=== PATIENT | male | born 1950 | race Caucasian/White ===

== ENCOUNTER 2016-07-09 11:10 | Emergency (ER) | payer MEDICARE, OTHER ==
[2016-07-09 11:37] LABS: Glucose,Whole Blood 136 mg/dL (75-99)
--- NOTE | 2016-07-09 11:46 | ED ---
General Adult HPI - General Chief complaint: Altered Mental Status Stated complaint: Altered Mental Status Time Seen by Provider: 07/09/16 11:25 Source: patient, family, EMS, RN notes reviewed Mode of arrival: EMS Limitations: altered mental status, physical limitation - History of Present Illness Initial comments: Patient is a 66-year-old male presenting to the emergency Department with family for change in mental status. Patient arrives by EMS. Patient had requested 140 however EMS was not comfortable with this secondary to unable to get vital signs in route and change in mental status. Patient is altered and offers very little history. Family states patient did recently have a TIPS procedure done at [facility] and was told confusion was a potential complication. Patient does have a history of hepatitis C and liver cancer followed by treatment and resolution of cancer however patient still has cirrhosis. Patient does have paracentesis done weekly at [facility]. Family is not concerned regarding change in color. Family states change in mental status started this morning. Patient was acting normal yesterday. Patient has had limited speech today. Patient is ambulatory however has been very drowsy. - Related Data Allergies Allergy/AdvReac Type Severity Reaction Status Date / Time No Known Allergies Allergy Verified 07/09/16 13:33 Review of Systems ROS Statement: Those systems with pertinent positive or pertinent negative responses have been documented in the HPI. ROS Other: All systems not noted in ROS Statement are negative. Limitations: ROS unobtainable due to patients medical condition Past Medical History Past Medical History: Liver Disease Additional Past Medical History / Comment(s): liver cancer History of Any Multi-Drug Resistant Organisms: Unobtainable Additional Past Surgical History / Comment(s): tip shunt placed 07/07/16 Past Psychological History: Unable to Obtain Smoking Status: Unknown if ever smoked Past Alcohol Use History: Unable to Obtain Past Drug Use History: Unable to Obtain General Exam Limitations: no limitations General appearance: in no apparent distress, other (Drowsy but easily arousable. Patient has difficulty following commands and does resist this.) Head exam: Present: atraumatic Eye exam: Present: normal appearance, PERRL ENT exam: Present: normal oropharynx Neck exam: Present: normal inspection Respiratory exam: Present: normal lung sounds bilaterally Cardiovascular Exam: Present: regular rate, normal rhythm GI/Abdominal exam: Present: soft, distended (Minimally). Absent: tenderness Extremities exam: Present: normal inspection Neurological exam: Present: alert, altered, other (Limited exam secondary to patient noncompliance). Absent: motor sensory deficit Expanded Patient oriented to: Present: person Psychiatric exam: Present: normal affect, normal mood Skin exam: Absent: rash Course Vital Signs 07/09/16 07/09/16 11:17 12:43 Temperature 97.3 F L Pulse Rate 62 76 Respiratory 18 14 Rate Blood Pressure 116/68 100/58 O2 Sat by Pulse 97 97 Oximetry Medical Decision Making - Medical Decision Making Patient reevaluated and unchanged. Patient did get somewhat confused and agitated during attempted chest x-ray. Family updated on results and plan. Case was discussed in detail with Dr. Espino at [facility] who accept transfer. - Lab Data Result diagrams: 07/09/16 11:30 07/09/16 11:30 Lab Results 07/09/16 07/09/16 07/09/16 Range/Units 11:23 11:30 11:30 WBC (3.8-10.6) k/uL RBC (4.30-5.90) m/uL Hgb (13.0-17.5) gm/dL Hct (39.0-53.0) % MCV (80.0-100.0) fL MCH (25.0-35.0) pg MCHC (31.0-37.0) g/dL RDW (11.5-15.5) % Plt Count (150-450) k/uL Neutrophils % % Lymphocytes % % Monocytes % % Eosinophils % % Basophils % % Neutrophils # (1.3-7.7) k/uL Lymphocytes # (1.0-4.8) k/uL Monocytes # (0-1.0) k/uL Eosinophils # (0-0.7) k/uL Basophils # (0-0.2) k/uL Manual Slide Review Large Platelets Hypochromasia Poikilocytosis PT (9.0-12.0) sec INR (<1.1) APTT (22.0-30.0) sec Sodium (137-145) mmol/L Potassium (3.5-5.1) mmol/L Chloride (98-107) mmol/L Carbon Dioxide (22-30) mmol/L Anion Gap mmol/L BUN (9-20) mg/dL Creatinine (0.66-1.25) mg/dL Est GFR (MDRD) Af Amer (>60 ml/min/1.73 sqM) Est GFR (MDRD) Non-Af (>60 ml/min/1.73 sqM) Glucose (74-99) mg/dL POC Glucose (mg/dL) 136 H (75-99) mg/dL POC Glu Receptionist Nurse Gonzalo Lenz Calcium (8.4-10.2) mg/dL Total Bilirubin (0.2-1.3) mg/dL AST (17-59) U/L ALT (21-72) U/L Alkaline Phosphatase (38-126) U/L Ammonia 54 H (<30) umol/L Total Creatine Kinase 45 L (55-170) U/L CK-MB (CK-2) 1.2 (0.0-2.4) ng/mL CK-MB (CK-2) Rel Index 2.7 Troponin I <0.012 (0.000-0.034) ng/mL Total Protein (6.3-8.2) g/dL Albumin (3.5-5.0) g/dL Urine Color Urine Appearance (Clear) Urine pH (5.0-8.0) Ur Specific [place] (1.001-1.035) Urine Protein (Negative) Urine Glucose (UA) (Negative) Urine Ketones (Negative) Urine Blood (Negative) Urine Nitrate (Negative) Urine Bilirubin (Negative) Urine Urobilinogen (<2.0) mg/dL Ur Leukocyte Esterase (Negative) 07/09/16 07/09/16 07/09/16 Range/Units 11:30 11:30 11:30 WBC 8.3 (3.8-10.6) k/uL RBC 4.04 L (4.30-5.90) m/uL Hgb 11.2 L (13.0-17.5) gm/dL Hct 33.9 L (39.0-53.0) % MCV 83.9 (80.0-100.0) fL MCH 27.6 (25.0-35.0) pg MCHC 33.0 (31.0-37.0) g/dL RDW 15.5 (11.5-15.5) % Plt Count 31 L* (150-450) k/uL Neutrophils % 87 % Lymphocytes % 6 % Monocytes % 4 % Eosinophils % 1 % Basophils % 0 % Neutrophils # 7.2 (1.3-7.7) k/uL Lymphocytes # 0.5 L (1.0-4.8) k/uL Monocytes # 0.3 (0-1.0) k/uL Eosinophils # 0.1 (0-0.7) k/uL Basophils # 0.0 (0-0.2) k/uL Manual Slide Review Performed Large Platelets Present Hypochromasia Slight Poikilocytosis Slight PT 12.9 H (9.0-12.0) sec INR 1.3 (<1.1) APTT 24.8 (22.0-30.0) sec Sodium 136 L (137-145) mmol/L Potassium 4.6 (3.5-5.1) mmol/L Chloride 105 (98-107) mmol/L Carbon Dioxide 26 (22-30) mmol/L Anion Gap 5 mmol/L BUN 16 (9-20) mg/dL Creatinine 0.99 (0.66-1.25) mg/dL Est GFR (MDRD) Af Amer >60 (>60 ml/min/1.73 sqM) Est GFR (MDRD) Non-Af >60 (>60 ml/min/1.73 sqM) Glucose 109 H (74-99) mg/dL POC Glucose (mg/dL) (75-99) mg/dL POC Glu Receptionist Nurse ID Calcium 8.0 L (8.4-10.2) mg/dL Total Bilirubin 1.2 (0.2-1.3) mg/dL AST 371 H (17-59) U/L ALT 423 H (21-72) U/L Alkaline Phosphatase 75 (38-126) U/L Ammonia (<30) umol/L Total Creatine Kinase (55-170) U/L CK-MB (CK-2) (0.0-2.4) ng/mL CK-MB (CK-2) Rel Index Troponin I (0.000-0.034) ng/mL Total Protein 4.8 L (6.3-8.2) g/dL Albumin 2.5 L (3.5-5.0) g/dL Urine Color Urine Appearance (Clear) Urine pH (5.0-8.0) Ur Specific [place] (1.001-1.035) Urine Protein (Negative) Urine Glucose (UA) (Negative) Urine Ketones (Negative) Urine Blood (Negative) Urine Nitrate (Negative) Urine Bilirubin (Negative) Urine Urobilinogen (<2.0) mg/dL Ur Leukocyte Esterase (Negative) 07/09/16 Range/Units 12:50 WBC (3.8-10.6) k/uL RBC (4.30-5.90) m/uL Hgb (13.0-17.5) gm/dL Hct (39.0-53.0) % MCV (80.0-100.0) fL MCH (25.0-35.0) pg MCHC (31.0-37.0) g/dL RDW (11.5-15.5) % Plt Count (150-450) k/uL Neutrophils % % Lymphocytes % % Monocytes % % Eosinophils % % Basophils % % Neutrophils # (1.3-7.7) k/uL Lymphocytes # (1.0-4.8) k/uL Monocytes # (0-1.0) k/uL Eosinophils # (0-0.7) k/uL Basophils # (0-0.2) k/uL Manual Slide Review Large Platelets Hypochromasia Poikilocytosis PT (9.0-12.0) sec INR (<1.1) APTT (22.0-30.0) sec Sodium (137-145) mmol/L Potassium (3.5-5.1) mmol/L Chloride (98-107) mmol/L Carbon Dioxide (22-30) mmol/L Anion Gap mmol/L BUN (9-20) mg/dL Creatinine (0.66-1.25) mg/dL Est GFR (MDRD) Af Amer (>60 ml/min/1.73 sqM) Est GFR (MDRD) Non-Af (>60 ml/min/1.73 sqM) Glucose (74-99) mg/dL POC Glucose (mg/dL) (75-99) mg/dL POC Glu Receptionist Nurse ID Calcium (8.4-10.2) mg/dL Total Bilirubin (0.2-1.3) mg/dL AST (17-59) U/L ALT (21-72) U/L Alkaline Phosphatase (38-126) U/L Ammonia (<30) umol/L Total Creatine Kinase (55-170) U/L CK-MB (CK-2) (0.0-2.4) ng/mL CK-MB (CK-2) Rel Index Troponin I (0.000-0.034) ng/mL Total Protein (6.3-8.2) g/dL Albumin (3.5-5.0) g/dL Urine Color Yellow Urine Appearance Clear (Clear) Urine pH 6.0 (5.0-8.0) Ur Specific [place] 1.010 (1.001-1.035) Urine Protein Negative (Negative) Urine Glucose (UA) Negative (Negative) Urine Ketones Negative (Negative) Urine Blood Negative (Negative) Urine Nitrate Negative (Negative) Urine Bilirubin Negative (Negative) Urine Urobilinogen <2.0 (<2.0) mg/dL Ur Leukocyte Esterase Negative (Negative) - Radiology Data Radiology results: image reviewed (Computed tomography scan of the brain shows no acute process. Chest x-ray shows no acute process.) Disposition Clinical Impression: Altered mental status, Hepatic encephalopathy Disposition: OTHER INSTITUTION NOT DEFINED Condition: Serious - Out of Hospital Transfer - Req. Specs Out of Hospital Transfer - Requested Specifics: Other Emergency Center
[2016-07-09 11:59] LABS: Basophils % (A) 0 %; CH 27.3; CHCM 32.6; Eosinophils # (A) 0.1 k/uL (0-0.7); Eosinophils % (A) 1 %; HCT 33.9 % (39.0-53.0); HDW 3.42; HGB 11.2 gm/dL (13.0-17.5); Hypochromasia Slight; Large Platelets Flag Marked; Luc # (Auto) 0.07; Luc % (Auto) 1; Lymphocytes # (A) 0.5 k/uL (1.0-4.8); Lymphocytes % (A) 6 %; MCH 27.6 pg (25.0-35.0); MCV 83.9 fL (80.0-100.0); Mean Platelet Volume 12.7; Monocytes # (A) 0.3 k/uL (0-1.0); Monocytes % (A) 4 %; Neutrophils # (A) 7.2 k/uL (1.3-7.7); Neutrophils % (A) 87 %; Poikilocytosis Slight; RBC 4.04 m/uL (4.30-5.90); RDW 15.5 % (11.5-15.5); WBC 8.3 k/uL (3.8-10.6); WBC (Perox) 8.27
[2016-07-09 12:07] LABS: INR 1.3 (<1.1); Partial Thromboplastin Time 24.8 sec (22.0-30.0); Prothrombin Time 12.9 sec (9.0-12.0)
[2016-07-09 12:12] LABS: ALT 423 U/L (21-72); AST 371 U/L (17-59); Alkaline Phosphatase 75 U/L (38-126); Anion Gap 5 mmol/L; Blood Urea Nitrogen 16 mg/dL (9-20); Carbon Dioxide 26 mmol/L (22-30); Chloride 105 mmol/L (98-107); Glucose 109 mg/dL (74-99); Non-African American GFR(MDRD) >60 (>60 ml/min/1.73 sqM); Potassium 4.6 mmol/L (3.5-5.1); Sodium 136 mmol/L (137-145); Total Bilirubin 1.2 mg/dL (0.2-1.3); Total Protein 4.8 g/dL (6.3-8.2)
[2016-07-09 12:16] LABS: Manual Review Performed
[2016-07-09 12:18] LABS: Large Platelets Present
[2016-07-09 12:19] LABS: Creatine Kinase 45 U/L (55-170)
[2016-07-09 12:32] LABS: Creatine Kinase MB 1.2 ng/mL (0.0-2.4); Troponin I <0.012 ng/mL (0.000-0.034)
--- NOTE | 2016-07-09 12:54 | CT ---
EXAMINATION TYPE: CT brain wo con DATE OF EXAM: 07/09/2016 12:35 PM COMPARISON: NONE INDICATION: altered mental changes DLP: 1029.9 mGycm, Automated exposure control for dose reduction was used. CONTRAST: None CT of the brain is performed utilizing 3 mm thick sections through the posterior fossa and 3 mm thick sections through the remaining calvarium. Study is performed within 24 hours of arrival to the hosp ital. No abnormal hyperdensity is present to suggest an acute intracranial hemorrhage. No mass lesion is evident. No acute infarcts are evident. Ventricles and sulci are appropriate for the patient age. Paranasal sinuses and mastoid air cells within the [id number] are clear. IMPRESSIONS: 1. No acute intracranial changes.
[2016-07-09 12:59] LABS: Appearance,Urine Clear (Clear); Bilirubin,Urine Negative (Negative); Glucose,Urine (UA) Negative (Negative); Ketones,Urine Negative (Negative); Leukocyte Esterase,Urine Negative (Negative); Nitrite,Urine Negative (Negative); Protein,Urine Negative (Negative); UA Billing (MACRO vs. MICRO) CHEM; Urobilinogen,Urine <2.0 mg/dL (<2.0)
--- NOTE | 2016-07-09 13:09 | XR ---
EXAMINATION TYPE: XR chest 2V DATE OF EXAM: 07/09/2016 1:03 PM COMPARISON: NONE INDICATION: Altered mental status TECHNIQUE: Single frontal view of the chest is obtained. FINDINGS: The heart size is normal. The pulmonary vasculature is normal. Very minimal increased lung markings baby in the lower lung douglas. Correlate for atelectasis. IMPRESSION: 1. Suggestion of subsegmental atelectasis bilateral lung bases. Follow-up exams can be performed.
[2016-07-09] MEDS ORDERED: LACTULOSE 20 GM/30 ML CUP PO ONE (13:42)
[2016-07-09 15:10] VITALS: BP 119/73; PULSE 68; RESP 18; TEMP 97.4
== END 2016-07-09 15:30 | disposition other institution (70) ==
LOC: EC 11:10
DX: K72.90 Hepatic failure, unspecified without coma (principal); B19.20 Unspecified viral hepatitis C without hepatic coma; K74.60 Unspecified cirrhosis of liver; Z85.05 Personal history of malignant neoplasm of liver
CPT/HCPCS: 36415; 70450; 71020; 80053; 81003; 82140; 82550; 82553; 84484; 85025; 85610; 85730; 93005; 99285

== ENCOUNTER → 2017-10-16 | Outpatient (CLI) | payer MEDICARE, OTHER ==
[2017-10-16 11:16] LABS: INR 1.1 (<1.2); Partial Thromboplastin Time 24.2 sec (22.0-30.0); Prothrombin Time 10.5 sec (9.0-12.0)
== END | disposition home or self-care (01) ==
LOC: LABWHC1 10:20
PROVIDERS: ATTEND Internal Medicine Gastroenterology
DX: C22.8 Malignant neoplasm of liver, primary, unspecified as to type (principal)
CPT/HCPCS: 36415; 85610; 85730

== ENCOUNTER → 2018-04-17 | Outpatient (CLI) | payer MEDICARE, OTHER ==
--- NOTE | 2018-04-17 08:43 | MR ---
EXAMINATION TYPE: MR knee LT wo con DATE OF EXAM: 04/17/2018 COMPARISON: None HISTORY: Knee pain TECHNIQUE: Multiplanar, multisequence images of the knee is performed without IV contrast. FINDINGS: MEDIAL MENISCUS: Anterior and posterior horns are intact without tear. LATERAL MENISCUS: Anterior and posterior horns are intact without tear. CRUCIATE LIGAMENTS: The anterior and posterior cruciate ligaments are intact and unremarkable. COLLATERAL LIGAMENTS: The medial collateral ligament and lateral collateral ligament complex are inta ct and unremarkable. EXTENSOR MECHANISM: Visualized quadriceps and patellar tendons are intact. EFFUSION: No significant suprapatellar joint effusion. POPLITEAL CYST: No popliteal/rivas cyst. TRICOMPARTMENT SPACES: Mild degenerative narrowing medial tibiofemoral joint space and patellofemoral joint space. CARTILAGE: Intact BONE MARROW SIGNAL: There is bone marrow edema involving the lateral tibial Plateau with nondisplaced subchondral fracture posterior tibial plateau. No fracture depression noted. Mild surrounding soft t issue edema. OTHER: No additional significant abnormality is appreciated. IMPRESSION: 1.There is bone marrow edema involving the lateral tibial Plateau with nondisplaced subchondral fract ure posterior tibial plateau. No fracture depression noted. Mild surrounding soft tissue edema.
== END | disposition home or self-care (01) ==
LOC: RADMRIMAIN 05:59
PROVIDERS: ATTEND Orthopaedic Surgery
DX: S82.145A Nondisplaced bicondylar fracture of left tibia, initial encounter for closed fracture (principal)

== ENCOUNTER → 2018-06-21 | Outpatient (CLI) | payer MEDICARE, OTHER ==
[2018-06-21 11:25] LABS: Potassium 5.8 mmol/L (3.5-5.1)
== END | disposition home or self-care (01) ==
LOC: LABPAT 09:24
PROVIDERS: ATTEND Orthopaedic Surgery
DX: Z01.818 Encounter for other preprocedural examination (principal); M23.92 Unspecified internal derangement of left knee; Z01.812 Encounter for preprocedural laboratory examination
CPT/HCPCS: 80051; 93005

== ENCOUNTER → 2018-06-21 | Outpatient (CLI) | payer MEDICARE, OTHER ==
--- NOTE | 2018-06-21 12:58 | MR ---
EXAMINATION TYPE: MR lumbar spine wo con DATE OF EXAM: 06/21/2018 11:33 AM COMPARISON: NONE HISTORY: Disc degeneration, lumbar region, fall Multiplanar, MultiSpin echo imaging of the lumbar spine was performed. Please note only sagittal T1 a nd T2-weighted data sets were obtained. 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 Examination is therefore limited. L1-L2: Normal disc appearance without desiccation. No herniation, protrusion or disc bulging. No ca nal stenosis is present. Foramina are patent bilaterally. L2-L3: Normal disc appearance without desiccation. No herniation, protrusion or disc bulging. No ca nal stenosis is present. Foramina are patent bilaterally. L3-L4: Normal disc appearance without desiccation. No herniation, protrusion or disc bulging. No ca nal stenosis is present. Foramina are patent bilaterally. L4-L5: Normal disc appearance without desiccation. No herniation, protrusion or disc bulging. No ca nal stenosis is present. Foramina are patent bilaterally. L5-S1: Mild to moderate disc desiccation. Mild posterior disc bulge. No evidence of herniation or pro trusion. No evidence for central stenosis. Mild facet joint arthropathy with bilateral foraminal enc roachment Lumbar segments are intact. No paraspinal masses are identified. Conus medullaris has a normal appe arance. IMPRESSION: 1. Degenerative disc disease and disc bulging is noted.
== END | disposition home or self-care (01) ==
LOC: RADMRIMAIN 10:18
PROVIDERS: ATTEND Family Medicine
DX: M51.36 Other intervertebral disc degeneration, lumbar region (principal); M51.27 Other intervertebral disc displacement, lumbosacral region; I10 Essential (primary) hypertension
CPT/HCPCS: 72148; 82565

== ENCOUNTER → 2019-06-27 | Outpatient (CLI) | payer MEDICARE, OTHER ==
--- NOTE | 2019-06-29 17:09 | US ---
EXAMINATION TYPE: US kidneys/renal and bladder DATE OF EXAM: 06/27/2019 COMPARISON: NONE CLINICAL HISTORY: 69-year-old male N28.9 disorder kidney and bladder. EXAM MEASUREMENTS: Right Kidney: 8.0 x 4.7 x 4.4 cm Left Kidney: 10.4 x 5.3 x 4.1 cm Right Kidney: Measuring small. No hydronephrosis Left Kidney: No hydronephrosis. Bladder: 1.1 cm bladder wall nodularity right lateral aspect could represent a bladder wall fold rela ting to an adjacent bladder wall diverticulum. Bilateral Jets seen: Yes Spleen incidentally seen borderline enlarged at 13.6 cm. IMPRESSION: 1. No hydronephrosis. Suspect some underlying chronic kidney disease on the right given relatively sm aller size. 2. A 1.1 cm area of bladder wall nodularity along the right lateral aspect could represent a bladder wall fold relating to an adjacent diverticulum. A urothelial lesion is difficult to exclude at this t kb. Correlate with urine cytology, urinalysis, and either short interval follow-up or direct visuali zation as indicated.
== END | disposition home or self-care (01) ==
LOC: RADUSMAIN 13:34
PROVIDERS: ATTEND Family Medicine
DX: N32.89 Other specified disorders of bladder (principal)
CPT/HCPCS: 76770

== ENCOUNTER → 2019-07-03 | Outpatient (CLI) | payer MEDICARE, OTHER ==
[2019-07-03 08:15] LABS: Appearance,Urine Clear (Clear); Bilirubin,Urine Negative (Negative); Blood,Urine Trace (Negative); Color,Urine Yellow; Glucose,Urine (UA) Negative (Negative); Ketones,Urine Negative (Negative); Leukocyte Esterase,Urine Trace (Negative); Mucus,Urine Rare /hpf; Nitrite,Urine Negative (Negative); PH, Urine 5.5 (5.0-8.0); Protein,Urine 1+ (Negative); RBC,Urine 1 /hpf (0-5); Specific Gravity,Urine 1.018 (1.001-1.035); Squamous Epithelial Cell,Urine 1 /hpf (0-4); Urobilinogen,Urine <2.0 mg/dL (<2.0); WBC,Urine 1 /hpf (0-5)
[2019-07-03 16:23] LABS: African American GFR (CKD) 50.9 (60.0-200.0); Albumin 4.4 g/dL (3.80-4.90); Albumin/Globulin Ratio 2.75 (1.60-3.17); Anion Gap 3.4 mmol/L (4.00-12.00); BUN/Creat Ratio 13.75 Ratio (12.00-20.00); Calcium 8.8 mg/dL (8.7-10.3); Carbon Dioxide 23.6 mmol/L (21.6-31.8); Globulin 1.6 g/dL (1.6-3.3); Non-African American GFR(CKD) 43.9 (60.0-200.0); Phosphorus 2.4 mg/dL (2.4-5.1); Total Bilirubin 0.4 mg/dL (0.3-1.2)
== END | disposition home or self-care (01) ==
LOC: LABWHC1 07:32
PROVIDERS: ATTEND Internal Medicine Nephrology
DX: N18.9 Chronic kidney disease, unspecified (principal)
CPT/HCPCS: 36415; 80053; 81001; 84100

== ENCOUNTER → 2019-08-05 | Outpatient (CLI) | payer MEDICARE, OTHER | END | disposition home or self-care (01) | CPT/HCPCS: 36415; 80048; 80076; 80169; 81001; 82040; 82306; 82465; 82570; 82728; 83540; 83550; 83735; 83970; 84100; 84156; 84550; 85025 ==

== ENCOUNTER → 2020-02-06 | Outpatient (CLI) | payer MEDICARE, OTHER ==
[2020-02-06 12:59] LABS: INR 0.9 (<1.2); Partial Thromboplastin Time 22.2 sec (22.0-30.0); Prothrombin Time 9.8 sec (9.0-12.0)
[2020-02-06 21:07] LABS: Hepatitis A Antibody IgM Non-Reactive (Non-Reactive); Hepatitis B Surface Antigen Non-Reactive (Non-Reactive)
[2020-02-06 21:20] LABS: EBV-EBNA(IgG) >8.0 AI; EBV-VCA (IgG) >8.0 AI; EBV-VCA (IgM) 1.6 AI
== END | disposition home or self-care (01) ==
LOC: LABWHC1 11:39
PROVIDERS: ATTEND Internal Medicine Gastroenterology
DX: K74.60 Unspecified cirrhosis of liver (principal); B18.2 Chronic viral hepatitis C; Z94.4 Liver transplant status; R74.8 Abnormal levels of other serum enzymes; R76.8 Other specified abnormal immunological findings in serum; Z91.89 Other specified personal risk factors, not elsewhere classified; C22.0 Liver cell carcinoma
CPT/HCPCS: 86709; 86665 ×2; 87522; 86663; 85610; 85730; 87340; 87497; 86664; 36415; U0003

== ENCOUNTER → 2020-02-13 | Outpatient (CLI) | payer MEDICARE, OTHER | END | disposition home or self-care (01) | LOC: LABWHC1 13:25 | PROVIDERS: ATTEND Radiology Diagnostic Radiology | DX: Z20.828 Contact with and (suspected) exposure to other viral communicable diseases (principal) ==

== ENCOUNTER → 2020-03-30 | Outpatient (CLI) | payer MEDICARE | END | disposition home or self-care (01) | LOC: LABWHC1 10:51 | PROVIDERS: ATTEND Family Medicine | DX: Z03.89 Encounter for observation for other suspected diseases and conditions ruled out (principal) | CPT/HCPCS: U0003; C9803 ==

== ENCOUNTER → 2020-09-02 | Outpatient (CLI) | payer MEDICARE ==
[2020-09-02 11:41] LABS: Bilirubin,Unconjugated 0.6 mg/dL (0.0-1.1)
[2020-09-02 12:30] LABS: ALT 109 U/L (4-49); AST 45 U/L (17-59); African American GFR (CKD) 40 (>60 ml/min/1.73 sqM); Albumin 3.7 g/dL (3.5-5.0); Albumin/Globulin Ratio 1.5; Alkaline Phosphatase 358 U/L (38-126); Anion Gap 8 mmol/L; Blood Urea Nitrogen 32 mg/dL (9-20); Carbon Dioxide 24 mmol/L (22-30); Chloride 103 mmol/L (98-107); Cholesterol 197 mg/dL (<200); Globulin 2.5 g/dL; Glucose 115 mg/dL (74-99); HDL Cholesterol 47 mg/dL (40-60); LDL Cholesterol,Calculated 106 mg/dL (0-99); Non-African American GFR(CKD) 35 (>60 ml/min/1.73 sqM); Potassium 3.8 mmol/L (3.5-5.1); Sodium 135 mmol/L (137-145); T4, Free (Free Thyroxine) 1.27 ng/dL (0.78-2.19); Total Bilirubin 0.8 mg/dL (0.2-1.3); Total Protein 6.2 g/dL (6.3-8.2); Triglycerides 220 mg/dL (<150)
[2020-09-02 20:02] LABS: Basophils # (A) 0.03 X 10*3/uL (0.00-0.10); Basophils % (A) 0.5 %; Eosinophils # (A) 0.09 X 10*3/uL (0.04-0.35); Eosinophils % (A) 1.6 %; HCT 33.4 % (39.6-50.0); HGB 10.4 g/dL (13.0-17.0); Lymphocytes # (A) 1.43 X 10*3/uL (0.90-5.00); Lymphocytes % (A) 25.1 %; MCH 29.4 pg (27.0-32.0); MCHC 31.1 g/dL (32.0-37.0); MCV 94.4 fL (80.0-97.0); Mean Platelet Volume 11.3 fL (9.5-12.2); Monocytes # (A) 0.38 X 10*3/uL (0.20-1.00); Monocytes % (A) 6.7 %; Neutrophils # (A) 3.73 X 10*3/uL (1.80-7.70); Neutrophils % (A) 65.6 %; Platelet Count 139 X 10*3/uL (140-440); RBC 3.54 X 10*6/uL (4.40-5.60); RDW 15.4 % (11.5-14.5); WBC 5.69 X 10*3/uL (4.50-10.00)
[2020-09-03 00:36] LABS: % Iron Saturation 27.94 (15.00-50.00); Iron 69 ug/dL (65-175); Total Iron Binding Capacity 247 ug/dL (228-460)
[2020-09-03 00:45] LABS: Prostate Specific Antigen 0.9 ng/mL (0.0-4.5)
== END | disposition home or self-care (01) ==
LOC: LABWHC1 09:31
PROVIDERS: ATTEND Physician Assistant Medical
DX: E03.9 Hypothyroidism, unspecified (principal); I10 Essential (primary) hypertension; E78.2 Mixed hyperlipidemia; N40.0 Benign prostatic hyperplasia without lower urinary tract symptoms; D64.9 Anemia, unspecified
CPT/HCPCS: 36415; 80053; 80061; 82248; 82728; 83540; 83550; 84153; 84439; 84443; 85025

== ENCOUNTER 2020-09-15 07:35 | Emergency (ER) | payer MEDICARE ==
[2020-09-15 07:45] VITALS: TEMP 97.4
[2020-09-15] MEDS ORDERED: HYDROmorphone 1 MG/ML 1 ML SYRINGE IVP STA (07:46)
[2020-09-15] MEDS ORDERED: ONDANSETRON 4 MG/2 ML VIAL IVP STA (07:46)
[2020-09-15] MEDS ORDERED: SODIUM CHLORIDE 0.9% 500 ML 500 ML IV STA (07:47)
[2020-09-15] MEDS ORDERED: SODIUM CHLORIDE 0.9% 1,000 ML IV STA ×3 (07:47→09:48)
--- NOTE | 2020-09-15 07:51 | ED ---
General Adult HPI - General Chief complaint: Recheck/Abnormal Lab/Rx Stated complaint: abd pain Time Seen by Provider: 09/15/20 07:35 Source: patient, EMS, RN notes reviewed Mode of arrival: EMS Limitations: no limitations - History of Present Illness Initial comments: This is a 70-year-old male history of liver transplant about 2 years ago at [facility] also a history of chronic kidney disease who states he had the onset 2 days ago of increasing abdominal distention he started having pain this morning. Pain was very severe nonspecific and quality. He was given morphine and route by paramedics with minimal relief. He's had dry heaves no vomiting decreased oral intake for past 2 days also not sleeping over the last 2 days. He's had chills sweats no fever. No other current complaints or modifying factors - Related Data Home Medications Medication Instructions Recorded Confirmed Aspirin 325 mg PO DAILY 06/26/18 06/26/18 Atorvastatin [Lipitor] 20 mg PO DAILY 06/26/18 06/26/18 Ferrous Sulfate [Iron] 325 mg PO DAILY 06/26/18 06/26/18 Labetalol [Trandate] 200 mg PO BID 06/26/18 06/26/18 Levothyroxine Sodium 25 mcg PO QAM 06/26/18 06/26/18 Magnesium Oxide 400 mg PO BID 06/26/18 06/26/18 Morphine Sulfate 15 mg PO 1600 06/26/18 06/26/18 Morphine Sulfate [Ms Contin] 30 mg PO BID 06/26/18 06/26/18 Stool Softener 1 tab PO DAILY 06/26/18 06/26/18 Tacrolimus [Prograf] 2 mg PO BID 06/26/18 06/26/18 Tamsulosin [Flomax] 0.4 mg PO DAILY 06/26/18 06/26/18 Tenofovir Disoproxil Fumarate 300 mg PO QAM 06/26/18 06/26/18 Zortress 2.25 mg PO BID 06/26/18 06/26/18 mycophenolate mofetiL [Cellcept] 250 mg PO BID 06/26/18 06/26/18 oxyCODONE HCL [OxyIR] 5 mg PO Q12H 06/26/18 06/26/18 Allergies Allergy/AdvReac Type Severity Reaction Status Date / Time adhesive tape AdvReac Unknown Verified 06/26/18 09:07 Review of Systems ROS Statement: Those systems with pertinent positive or pertinent negative responses have been documented in the HPI. ROS Other: All systems not noted in ROS Statement are negative. Past Medical History Past Medical History: Liver Disease Additional Past Medical History / Comment(s): liver cancer History of Any Multi-Drug Resistant Organisms: C-DIFF Additional Past Surgical History / Comment(s): tip shunt placed 07/07/16 Past Psychological History: No Psychological Hx Reported Smoking Status: Former smoker Past Alcohol Use History: Unable to Obtain Past Drug Use History: Marijuana General Exam - General Exam Comments Initial Comments: This is a well-developed asthenic awake alert oriented 3 male Limitations: no limitations General appearance: alert (The patient does appear uncomfortable), anxious, in distress Head exam: Present: atraumatic, normocephalic, normal inspection Eye exam: Present: normal appearance, PERRL, EOMI. Absent: scleral icterus, conjunctival injection, periorbital swelling ENT exam: Present: mucous membranes dry Neck exam: Present: normal inspection. Absent: tenderness, meningismus, lymphadenopathy Respiratory exam: Present: normal lung sounds bilaterally. Absent: respiratory distress, wheezes, rales, rhonchi, stridor Cardiovascular Exam: Present: normal rhythm, tachycardia, normal heart sounds. Absent: systolic murmur, diastolic murmur, rubs, gallop, clicks GI/Abdominal exam: Present: soft, distended, tenderness, normal bowel sounds, other (Well-healed rooftop surgical scar). Absent: guarding, rebound, rigid Extremities exam: Present: normal inspection, full ROM, normal capillary refill. Absent: tenderness, pedal edema, joint swelling, calf tenderness Back exam: Present: normal inspection Neurological exam: Present: alert, oriented X3, CN II-XII intact Psychiatric exam: Present: normal affect, normal mood Skin exam: Present: warm, dry, intact, normal color. Absent: rash Course Vital Signs 09/15/20 09/15/20 09/15/20 07:38 08:45 09:46 Temperature 97.4 F L Pulse Rate 124 H 123 H 123 H Respiratory 20 18 18 Rate Blood Pressure 182/116 161/114 166/99 O2 Sat by Pulse 96 98 98 Oximetry - Reevaluation(s) Reevaluation #1: 09/15/20 10:54 Patient did require several more doses of pain medication he is on a rather large dose of morphine daily for chronic pain. Initial imaging showed evidence of free air CAT scan was recommended at did discuss the case with the radiologist. EKG Findings - EKG Results: EKG: interpreted by GABRIELLE (Tachycardia with PACs rate 122 CT interval 140 QRS 86 QT since QTC 324/[address] configuration) Medical Decision Making - Medical Decision Making I did discuss findings with the patient family patient will be transferred to [facility] and did consult Dr. Rodriguez who did recommend transferred to the transplant center for higher level of care. I did discuss the case with Dr. Akhtar from [facility] who is agreed to accept the patient in transfer ER to ER.. Patient be sent by EMS. He did receive IV Avelox as well as the IV pain medication and fluids. - Lab Data Result diagrams: 09/15/20 08:21 09/15/20 08:21 Lab Results 09/15/20 09/15/20 09/15/20 Range/Units 08:21 08:21 08:21 WBC 15.8 H (3.8-10.6) k/uL RBC 5.41 (4.30-5.90) m/uL Hgb 15.3 (13.0-17.5) gm/dL Hct 47.1 (39.0-53.0) % MCV 87.0 (80.0-100.0) fL MCH 28.3 (25.0-35.0) pg MCHC 32.5 (31.0-37.0) g/dL RDW 16.7 H (11.5-15.5) % Plt Count 257 (150-450) k/uL MPV 8.7 Neutrophils % (Manual) 68 % Band Neuts % (Manual) 8 % Lymphocytes % (Manual) 17 % Monocytes % (Manual) 7 % Neutrophils # (Manual) 12.00 H (1.3-7.7) k/uL Lymphocytes # (Manual) 2.69 (1.0-4.8) k/uL Monocytes # (Manual) 1.11 H (0-1.0) k/uL Nucleated RBCs 0 (0-0) /100 WBC Manual Slide Review Performed Poikilocytosis Moderate Anisocytosis Slight PT 11.1 (9.0-12.0) sec INR 1.0 (<1.2) APTT 18.3 L (22.0-30.0) sec Sodium 132 L (137-145) mmol/L Potassium 3.6 (3.5-5.1) mmol/L Chloride 102 (98-107) mmol/L Carbon Dioxide 19 L (22-30) mmol/L Anion Gap 11 mmol/L BUN 21 H (9-20) mg/dL Creatinine 2.04 H (0.66-1.25) mg/dL Est GFR (CKD-EPI)AfAm 38 (>60 ml/min/1.73 sqM) Est GFR (CKD-EPI)NonAf 33 (>60 ml/min/1.73 sqM) Glucose 255 H (74-99) mg/dL Plasma Lactic Acid Mahin (0.7-2.0) mmol/L Calcium 9.2 (8.4-10.2) mg/dL Total Bilirubin 1.0 (0.2-1.3) mg/dL AST 28 (17-59) U/L ALT 24 (4-49) U/L Alkaline Phosphatase 170 H (38-126) U/L Creatine Kinase 70 (55-170) U/L Total Protein 6.2 L (6.3-8.2) g/dL Albumin 3.9 (3.5-5.0) g/dL Amylase 102 (30-110) U/L Lipase 74 (23-300) U/L 09/15/ Range/Units 08:21 WBC (3.8-10.6) k/uL RBC (4.30-5.90) m/uL Hgb (13.0-17.5) gm/dL Hct (39.0-53.0) % MCV (80.0-100.0) fL MCH (25.0-35.0) pg MCHC (31.0-37.0) g/dL RDW (11.5-15.5) % Plt Count (150-450) k/uL MPV Neutrophils % (Manual) % Band Neuts % (Manual) % Lymphocytes % (Manual) % Monocytes % (Manual) % Neutrophils # (Manual) (1.3-7.7) k/uL Lymphocytes # (Manual) (1.0-4.8) k/uL Monocytes # (Manual) (0-1.0) k/uL Nucleated RBCs (0-0) /100 WBC Manual Slide Review Poikilocytosis Anisocytosis PT (9.0-12.0) sec INR (<1.2) APTT (22.0-30.0) sec Sodium (137-145) mmol/L Potassium (3.5-5.1) mmol/L Chloride (98-107) mmol/L Carbon Dioxide (22-30) mmol/L Anion Gap mmol/L BUN (9-20) mg/dL Creatinine (0.66-1.25) mg/dL Est GFR (CKD-EPI)AfAm (>60 ml/min/1.73 sqM) Est GFR (CKD-EPI)NonAf (>60 ml/min/1.73 sqM) Glucose (74-99) mg/dL Plasma Lactic Acid Mahin 2.2 H* (0.7-2.0) mmol/L Calcium (8.4-10.2) mg/dL Total Bilirubin (0.2-1.3) mg/dL AST (17-59) U/L ALT (4-49) U/L Alkaline Phosphatase (38-126) U/L Creatine Kinase (55-170) U/L Total Protein (6.3-8.2) g/dL Albumin (3.5-5.0) g/dL Amylase (30-110) U/L Lipase (23-300) U/L - Radiology Data Radiology results: report reviewed (Imaging reviewed and I did discuss the case with Dr. Mendieta and Dr. Russo patient does have evidence of a perforation possibly the inferior aspect of the stomach.), image reviewed Critical Care Time Critical Care Time: Yes Total Critical Care Time: 39 Critical Care Time: Critical care time includes initial presentation with history physical labs x-rays multiple reevaluation the patient discussion with multiple physicians regarding the patient's findings discussed with paramedics upon arrival and upon transfer. Review of old charting documentation the above. Disposition Clinical Impression: Perforated abdominal viscus, Abdominal pain, Lactic acidosis, Dehydration, History of liver transplant Disposition: OTHER INSTITUTION NOT DEFINED Condition: Fair Referrals: Brianna Guadalupe MD [Primary Care Provider] - 1-2 days - Out of Hospital Transfer - Req. Specs Out of Hospital Transfer - Requested Specifics: Other Emergency Center
[2020-09-15 08:32] LABS: Anisocytosis Slight; HCT 47.1 % (39.0-53.0); HGB 15.3 gm/dL (13.0-17.5); MCH 28.3 pg (25.0-35.0); MCHC 32.5 g/dL (31.0-37.0); Mean Platelet Volume 8.7; Platelet Count 257 k/uL (150-450); Poikilocytosis Moderate; RBC 5.41 m/uL (4.30-5.90); RDW 16.7 % (11.5-15.5); WBC 15.8 k/uL (3.8-10.6)
[2020-09-15 08:45] LABS: Albumin 3.9 g/dL (3.5-5.0); Calcium 9.2 mg/dL (8.4-10.2); Potassium 3.6 mmol/L (3.5-5.1); Total Protein 6.2 g/dL (6.3-8.2)
[2020-09-15 08:51] LABS: Prothrombin Time 11.1 sec (9.0-12.0)
[2020-09-15] MEDS ORDERED: fentaNYL (PF) 50 MCG/ML 2 ML AMP IV STA (08:51)
--- NOTE | 2020-09-15 08:55 | XR ---
EXAMINATION TYPE: XR KUB DATE OF EXAM: 09/15/2020 8:37 AM CLINICAL HISTORY: History of liver cancer with abdominal pain nausea and vomiting. TECHNIQUE: Two Upright KUB images of the abdomen are obtained. COMPARISON: None. FINDINGS: Prominent gas-filled small and large bowel loops with air-fluid levels in the upper to mid abdomen. Some paucity of bowel gas in the pelvis. Some gas seen in nondistended bowel loops in the ri ght lower quadrant. Cholecystectomy clips. Small right pleural effusion or pleural thickening. Modera te narrowing and mild to moderate spurring in both hip joints. Suggestion of free air below left tatiana diaphragm. IMPRESSION: Overall nonspecific bowel gas pattern. Cannot exclude developing mid small bowel obstruct ion. Probable pneumoperitoneum. Critical results communicated to ordering ER physician via telephone at time of dictation. A Document Only message has been documented for Kevin Chris MD in the [employer] Critical Re sult system on 09/15/2020 8:52 AM, Message ID [id number].
[2020-09-15 09:22] VITALS: RESP 18
[2020-09-15 09:28] LABS: Band Neutrophils % 8 %; Lymphocytes # (M) 2.69 k/uL (1.0-4.8); Monocytes # (M) 1.11 k/uL (0-1.0); Neutrophils % (M) 68 %; Nucleated Red Blood Cells 0 /100 WBC (0-0); Partial Thromboplastin Time 18.3 sec (22.0-30.0); Total Cells Counted 100
[2020-09-15] MEDS ORDERED: PIPERACILLIN-TAZOBACTAM 3.375 GM in SODIUM CHLORIDE 0.9% 100 ML IVPB STA (09:48)
[2020-09-15] MEDS ORDERED: PANTOPRAZOLE 40 MG/10 ML VIAL IVP ONE (09:49)
--- NOTE | 2020-09-15 09:50 | CT ---
EXAMINATION TYPE: CT abdomen pelvis wo con DATE OF EXAM: 09/15/2020 COMPARISON: KUB 09/15/2020 HISTORY: Abdominal pain CT DLP: 702.5 mGycm Automated exposure control for dose reduction was used. TECHNIQUE: Helical acquisition of images from the lung bases through the pelvis. FINDINGS: Lack of intravenous contrast could compromise sensitivity. Free air is noted within the abd omen. There are coronary artery calcifications present, root of the aorta is aneurysmal at 4.4 cm, so me associated calcification suspected LUNG BASES: There is some minimal airspace disease present in the right lower lobe laterally, some pr obable dependent atelectatic change, small right pleural effusion. AORTA: No significant abnormality is appreciated. LIVER/GB: Patient is post cholecystectomy. Liver shows no mass. PANCREAS: No significant abnormality is seen. SPLEEN: No significant abnormality is seen. ADRENALS: No significant abnormality is seen. KIDNEYS: No significant abnormality is seen. REPRODUCTIVE ORGANS: There are some calcifications associated with the prostate. URINARY BLADDER: Some thickening the urinary bladder wall could be due to underlying cystitis, corre late for possible chronic bladder outlet obstruction BOWEL: Stomach shows some dependent high attenuation possibly due to radiodense medication. Distal a spect of the stomach shows a thickened wall Inflammatory changes present near the gastroduodenal junc tion, free air is noted anteriorly. Along the distal aspect of the stomach there is some free air, fr ee fluid as well as free hypodense dependent material possibly related to prior oral intake FREE AIR: No Free Air is visible. ASCITES: There is free fluid present within the pelvis, along the paracolic gutters greater on the r ight. PELVIC ADENOPATHY: None visualized. RETROPERITONEAL ADENOPATHY: No Retroperitoneal Adenopathy visible. OSSEOUS STRUCTURES: There is a slight spinal curvature. Degenerative disc changes are noted in the v isualized spine. There is some associated facet arthropathy in the lower lumbar spine. IMPRESSION: MODERATE AMOUNT OF FREE AIR NOTED WITHIN THE ABDOMEN, ASCITES. CORRELATE FOR POSSIBLE PEPTIC ULCER DI SEASE, POSSIBLE LEAK NOTED IN THE INFERIOR ASPECT OF THE STOMACH. Aortic aneurysm and coronary artery disease. Case discussed with Dr. Chris telephonically at the time of interpretation. A Document Only message has been documented for Kevin Chris MD in the [employer] Critical Re sult system on 09/15/2020 9:47 AM, Message ID [id number].
[2020-09-15] MEDS ORDERED: LORazepam 2 MG/ML INJ IV STA (10:07)
[2020-09-15 11:01] VITALS: BP 152/107; PULSE 119
== END 2020-09-15 11:32 | disposition other institution (70) ==
LOC: EC 07:35
DX: K63.1 Perforation of intestine (nontraumatic) (principal); E87.2 Acidosis; E86.0 Dehydration; N18.9 Chronic kidney disease, unspecified; F12.90 Cannabis use, unspecified, uncomplicated; Z87.891 Personal history of nicotine dependence; Z79.82 Long term (current) use of aspirin; Z94.4 Liver transplant status; Z20.822 Contact with and (suspected) exposure to COVID-19
CPT/HCPCS: 93005; 80053; 82150; 82550; 83605; 83690; 85025; 85610; 85730; 87040; 87635; 74018; 74176; 99291; 96374; 96375 ×5; J2543; J2060; J2405; J3010; J1170; C9113

== ENCOUNTER 2020-10-08 20:25 | Emergency (ER) | payer MEDICARE ==
[2020-10-08 20:45] VITALS: TEMP 98.3
[2020-10-08 21:40] LABS: Anisocytosis Slight; Basophils % (A) 1 %; Eosinophils # (A) 0.1 k/uL (0-0.7); Eosinophils % (A) 1 %; HCT 30.4 % (39.0-53.0); Hypochromasia Moderate; Lymphocytes # (A) 1.4 k/uL (1.0-4.8); Lymphocytes % (A) 23 %; MCH 27.1 pg (25.0-35.0); MCHC 31.5 g/dL (31.0-37.0); MCV 86.1 fL (80.0-100.0); Mean Platelet Volume 8.7; Monocytes # (A) 0.3 k/uL (0-1.0); Monocytes % (A) 5 %; Neutrophils # (A) 4.4 k/uL (1.3-7.7); Neutrophils % (A) 70 %; Platelet Count 288 k/uL (150-450); RBC 3.53 m/uL (4.30-5.90); RDW 17.4 % (11.5-15.5); WBC 6.2 k/uL (3.8-10.6)
[2020-10-08 21:49] LABS: HGB 9.6 gm/dL (13.0-17.5)
[2020-10-08 22:28] LABS: Albumin 2.6 g/dL (3.5-5.0); Calcium 8.3 mg/dL (8.4-10.2); Potassium 4.2 mmol/L (3.5-5.1); Total Bilirubin 0.7 mg/dL (0.2-1.3); Total Protein 5.3 g/dL (6.3-8.2)
--- NOTE | 2020-10-08 22:33 | ED ---
Recheck HPI - General Chief Complaint: Recheck/Abnormal Lab/Rx Stated Complaint: Swollen Stomach, Surgery 3 weeks ago Time Seen by Provider: 10/08/20 20:54 Source: family Mode of arrival: wheelchair Limitations: no limitations - History of Present Illness Initial Comments: 70-year-old liver transplant patient presented to the ER today for chief complaint of clear liquid from surgical site. Patient states today he has had clear liquid coming from a surgical site. He states he has been feeling great since the surgery. Patient states he was at [facility] for ruptured peptic ulcer. Patient states that he has felt fine since, denies lighthe adedness, bright red stools, nausea, vomiting, fevers, warmth or purulent drainage from the incision site. Patient states today he noted some clear liquid from site and abdominal blaoting and came to the ER. Remaining ROS (-). - Related Data Home Medications Medication Instructions Recorded Confirmed Aspirin 325 mg PO DAILY 06/26/18 10/08/20 Atorvastatin [Lipitor] 20 mg PO HS 06/26/18 10/08/20 Ferrous Sulfate [Iron] 325 mg PO BID 06/26/18 10/08/20 Labetalol [Trandate] 200 mg PO BID 06/26/18 10/08/20 Levothyroxine Sodium 25 mcg PO DAILY 06/26/18 10/08/20 Magnesium Oxide 400 mg PO BID 06/26/18 10/08/20 Morphine Sulfate 15 mg PO DAILY@1600 06/26/18 10/08/20 Morphine Sulfate [Ms Contin] 30 mg PO BID 06/26/18 10/08/20 Tenofovir Disoproxil Fumarate 300 mg PO DAILY 06/26/18 10/08/20 oxyCODONE HCL [OxyIR] 5 mg PO Q12H 06/26/18 10/08/20 Docusate [Colace] 100 mg PO DAILY 09/15/20 10/08/20 Magnesium Gluconate [Magonate] 500 mg PO DAILY 09/15/20 10/08/20 Tacrolimus [Envarsus Xr] 0.75 mg PO DAILY 09/15/20 10/08/20 bisacodyL [Dulcolax] 5 mg PO DAILY PRN 09/15/20 10/08/20 diphenhydrAMINE [Benadryl] 50 mg PO HS PRN 09/15/20 10/08/20 Tetracycline HCl 1,000 mg PO BID 10/08/20 10/08/20 metroNIDAZOLE [Flagyl] 500 mg PO BID 10/08/20 10/08/20 predniSONE 5 mg PO DAILY 10/08/20 10/08/20 Allergies Allergy/AdvReac Type Severity Reaction Status Date / Time adhesive tape AdvReac Unknown Verified 10/08/20 22:09 Review of Systems ROS Statement: Those systems with pertinent positive or pertinent negative responses have been documented in the HPI. ROS Other: All systems not noted in ROS Statement are negative. Past Medical History Past Medical History: Liver Disease Additional Past Medical History / Comment(s): liver cancer History of Any Multi-Drug Resistant Organisms: C-DIFF Additional Past Surgical History / Comment(s): tip shunt placed 07/07/16 Past Psychological History: No Psychological Hx Reported Smoking Status: Former smoker Past Alcohol Use History: Unable to Obtain Past Drug Use History: Marijuana General Exam - General Exam Comments Initial Comments: General: The patient is awake and alert, in no distress Eye: Pupils are equal, round and reactive to light, extra-ocular movements are intact. No nystagmus. There is normal conjunctiva bilaterally. No signs of icterus. Ears, nose, mouth and throat: There are moist mucous membranes and no oral lesions. Neck: The neck is supple, there is no tenderness or JVD. Cardiovascular: There is a regular rate and rhythm. No murmur, rub or gallop is appreciated. Respiratory: Lungs are clear to auscultation, respirations are non-labored, breath sounds are equal. No wheezes, stridor, rales, or rhonchi. Gastrointestinal: Distneded abdomen mild diffuse tenderness, abdomen without masses or organomegaly noted. There is no rebound or guarding present. midline incision, clear fluid, appears to be healing/granulating previous dehiscence Musculoskeletal: Normal ROM, no tenderness. Strength 5/5. Sensation intact. Pulses equal bilaterally 2+. Neurological: A&O x 3. CN II-XII intact grossly, There are no obvious motor or sensory deficits. Coordination appears grossly intact. Speech is normal. Skin: Skin is warm and dry and no rashes or lesions are noted. Psychiatric: Cooperative, appropriate mood & affect, normal judgment. Limitations: no limitations Course Vital Signs 10/08/20 10/08/20 10/08/20 20:43 21:23 22:08 Temperature 98.3 F Pulse Rate 85 80 Respiratory 16 18 Rate Blood Pressure 96/68 95/60 93/63 O2 Sat by Pulse 96 96 Oximetry Medical Decision Making - Medical Decision Making 70-year-old male presenting for drainage from wound. Around 10PM patient states the wound is no longer draining and he wanted to go home-this was even before CMP results. I recommended waiting for labs, patient states he does not care. I discussed his lab results including his anemic state of 9.6 which i told him was concerning for possible GI bleed. He states that he doesnt care, he does not want to stay at the hospital and has a follow-up appointment on Sunday at 10:30> I discussed the risk of disability and secondary to GI bleed. I recommended he stay for protonix, serial CBC and monitoring on telemetry. Patient became angry and adamently refused. States he is not staying under and condition. pt does not appear acutely altered and is his own POA. I recommended patient return as soon as he can. I discussed case with attending Dr Escobar as celina lemons is of sound mind, we cannot hold him against his will. pt left against my medical advice - Lab Data Result diagrams: 10/08/20 21:11 10/08/20 21:11 Lab Results 10/08/20 10/08/20 Range/Units 21:11 21:11 WBC 6.2 (3.8-10.6) k/uL RBC 3.53 L (4.30-5.90) m/uL Hgb 9.6 L D (13.0-17.5) gm/dL Hct 30.4 L (39.0-53.0) % MCV 86.1 (80.0-100.0) fL MCH 27.1 (25.0-35.0) pg MCHC 31.5 (31.0-37.0) g/dL RDW 17.4 H (11.5-15.5) % Plt Count 288 (150-450) k/uL MPV 8.7 Neutrophils % 70 % Lymphocytes % 23 % Monocytes % 5 % Eosinophils % 1 % Basophils % 1 % Neutrophils # 4.4 (1.3-7.7) k/uL Lymphocytes # 1.4 (1.0-4.8) k/uL Monocytes # 0.3 (0-1.0) k/uL Eosinophils # 0.1 (0-0.7) k/uL Basophils # 0.0 (0-0.2) k/uL Hypochromasia Moderate Anisocytosis Slight Sodium 131 L (137-145) mmol/L Potassium 4.2 (3.5-5.1) mmol/L Chloride 99 (98-107) mmol/L Carbon Dioxide 22 (22-30) mmol/L Anion Gap 10 mmol/L BUN 29 H (9-20) mg/dL Creatinine 2.14 H (0.66-1.25) mg/dL Est GFR (CKD-EPI)AfAm 36 (>60 ml/min/1.73 sqM) Est GFR (CKD-EPI)NonAf 31 (>60 ml/min/1.73 sqM) Glucose 119 H (74-99) mg/dL Calcium 8.3 L (8.4-10.2) mg/dL Total Bilirubin 0.7 (0.2-1.3) mg/dL AST 25 (17-59) U/L ALT 10 (4-49) U/L Alkaline Phosphatase 504 H (38-126) U/L Total Protein 5.3 L (6.3-8.2) g/dL Albumin 2.6 L (3.5-5.0) g/dL Amylase 41 (30-110) U/L Lipase 53 (23-300) U/L Disposition Clinical Impression: Drainage from surgical wound, Anemia Disposition: Left Against Medical Advice Condition: Undetermined Instructions (If sedation given, give patient instructions): Anemia (ED) Additional Instructions: Please come back to ER whenever you can, if you will not then please at the very least follow-up on Sunday as scheduled. Is patient prescribed a controlled substance at d/c from ED?: No Referrals: Brianna Guadalupe MD [Primary Care Provider] - 1-2 days Time of Disposition: 22:33
[2020-10-08 23:21] VITALS: BP 96/64; PULSE 75; RESP 20
== END 2020-10-08 23:25 | disposition left against medical advice (07) ==
LOC: EC 20:25
DX: T81.30XA Disruption of wound, unspecified, initial encounter (principal); D64.9 Anemia, unspecified; F12.90 Cannabis use, unspecified, uncomplicated; Z87.891 Personal history of nicotine dependence; Z79.82 Long term (current) use of aspirin
CPT/HCPCS: 80053; 82150; 83690; 85025; 99284

== ENCOUNTER → 2021-08-10 | Outpatient (CLI) | payer MEDICARE ==
[2021-08-10 08:13] LABS: Appearance,Urine Clear (Clear); Bilirubin,Urine Negative (Negative); Blood,Urine Negative (Negative); Color,Urine Yellow; Glucose,Urine (UA) Negative (Negative); Ketones,Urine Negative (Negative); Leukocyte Esterase,Urine Negative (Negative); Nitrite,Urine Negative (Negative); Protein,Urine Trace (Negative); Specific Gravity,Urine 1.017 (1.001-1.035); Urobilinogen,Urine <2.0 mg/dL (<2.0)
[2021-08-10 10:44] LABS: Creatinine,Urine Random 132.3 mg/dL; Protein/Creatinine Ratio,Urine 0.272
[2021-08-10 11:16] LABS: % Iron Saturation 21.39 (15.00-50.00); African American GFR (CKD) 40.8 (60.0-200.0); Anion Gap 9.5 mmol/L (10.00-18.00); BUN/Creat Ratio 8.89 Ratio (12.00-20.00); Blood Urea Nitrogen 16.9 mg/dL (9.0-27.0); Calcium 8.6 mg/dL (8.7-10.3); Carbon Dioxide 22.5 mmol/L (20.0-27.5); Magnesium 2.3 mg/dL (1.5-2.4); Non-African American GFR(CKD) 35.2 (60.0-200.0); Phosphorus 2.6 mg/dL (2.4-5.1); Potassium 4.6 mmol/L (3.5-5.5); Uric Acid 4.3 mg/dL (3.7-8.7)
[2021-08-10 12:50] LABS: Albumin 4.1 g/dL (3.8-4.9); Ferritin 81.4 ng/mL (22.0-322.0)
[2021-08-10 16:09] LABS: Basophils # (A) 0.03 X 10*3/uL (0.00-0.10); Basophils % (A) 0.7 %; Eosinophils # (A) 0.13 X 10*3/uL (0.04-0.35); HCT 35.7 % (39.6-50.0); HGB 11.3 g/dL (13.0-17.0); Immature Grans, Automated 0.2 %; Lymphocytes # (A) 1.57 X 10*3/uL (0.90-5.00); Lymphocytes % (A) 36.5 %; MCH 28.1 pg (27.0-32.0); MCHC 31.7 g/dL (32.0-37.0); MCV 88.8 fL (80.0-97.0); Mean Platelet Volume 10.9 fL (9.5-12.2); Monocytes # (A) 0.26 X 10*3/uL (0.20-1.00); NRBC Per 100 WBC 0 /100 WBCS (0.0-0.0); Neutrophils % (A) 53.6 %; Platelet Count 137 X 10*3/uL (140-440); RBC 4.02 X 10*6/uL (4.40-5.60); RDW 14.4 % (11.5-14.5)
== END | disposition home or self-care (01) ==
LOC: LABWHC1 06:57
PROVIDERS: ATTEND Internal Medicine Nephrology
DX: N18.30 Chronic kidney disease, stage 3 unspecified (principal); E55.9 Vitamin D deficiency, unspecified; N25.81 Secondary hyperparathyroidism of renal origin; M10.9 Gout, unspecified; N39.0 Urinary tract infection, site not specified; D64.9 Anemia, unspecified; R80.9 Proteinuria, unspecified
CPT/HCPCS: 36415; 80048; 81003; 82040; 82306; 82570; 82728; 83540; 83550; 83735; 83970; 84100; 84156; 84550; 85025; 87517

== ENCOUNTER → 2021-09-13 | Outpatient (CLI) | payer MEDICARE | END | disposition home or self-care (01) | LOC: LABWHC1 08:29 | PROVIDERS: ATTEND Internal Medicine Gastroenterology | DX: Z53.9 Procedure and treatment not carried out, unspecified reason (principal) ==

== ENCOUNTER → 2021-12-23 | Outpatient (CLI) | payer MEDICARE ==
--- NOTE | 2021-12-23 10:40 | MR ---
EXAMINATION TYPE: MR lumbar spine wo con DATE OF EXAM: 12/23/2021 COMPARISON: MRI lumbar spine 06/21/2018 HISTORY: RADICULOPATHY, LUMBAR REGION, FELL ON STEPS TECHNIQUE: Multiplanar, multisequence images of the lumbar spine were acquired without IV contrast. L1-L2: Normal disc appearance without desiccation. No herniation, protrusion or disc bulging. No ca nal stenosis is present. Foramina are patent bilaterally. L2-L3: Mild posterior broad-based disc bulge causes only slight anterior mass effect on the thecal sa c. No significant foraminal. L3-L4: Normal disc appearance without desiccation. No herniation, protrusion or disc bulging. No ca nal stenosis is present. Foramina are patent bilaterally. L4-L5: Normal disc appearance without desiccation. No herniation, protrusion or disc bulging. No ca nal stenosis is present. Foramina are patent bilaterally. Facet arthropathy changes present with hyp ertrophy ligamentum flavum causing some posterior lateral mass effect thecal sac. L5-S1: Bilateral foraminal encroachment is present, there are circumferential extension endplate disc complex causing mild anterior mass effect on the thecal sac similar to prior exam. There is some fac et arthropathy change. Posterior broad-based disc bulge causes only slight anterior mass effect Lumbar segments are intact. No paraspinal masses are identified. Conus medullaris has a normal appe arance. Suspected transitional vertebral body. No significant spinal stenosis. There is multilevel sp ondylosis. Endplate discogenic marrow signal changes are noted. IMPRESSION: Degenerative disease and facet arthropathy are similar to prior exam.
== END | disposition home or self-care (01) ==
LOC: RADMRIMAIN 09:07
PROVIDERS: ATTEND Family Medicine
DX: M47.896 Other spondylosis, lumbar region (principal); M54.16 Radiculopathy, lumbar region
CPT/HCPCS: 72148

== ENCOUNTER → 2022-10-06 | Outpatient (CLI) | payer MEDICARE ==
[2022-10-06 11:14] LABS: Basophils # (A) 0.04 X 10*3/uL (0.00-0.10); Basophils % (A) 0.8 %; Eosinophils # (A) 0.12 X 10*3/uL (0.04-0.35); Eosinophils % (A) 2.3 %; HCT 41.9 % (39.6-50.0); HGB 12.6 g/dL (13.0-17.0); Immature Grans, Automated 0.2 %; Lymphocytes # (A) 1.69 X 10*3/uL (0.90-5.00); Lymphocytes % (A) 32.3 %; MCH 27.1 pg (27.0-32.0); MCHC 30.1 g/dL (32.0-37.0); MCV 90.1 fL (80.0-97.0); Mean Platelet Volume 10.9 fL (9.5-12.2); Monocytes # (A) 0.27 X 10*3/uL (0.20-1.00); Monocytes % (A) 5.2 %; NRBC Per 100 WBC 0 /100 WBCS (0.0-0.0); Neutrophils # (A) 3.11 X 10*3/uL (1.80-7.70); Neutrophils % (A) 59.2 %; Platelet Count 128 X 10*3/uL (140-440); RBC 4.65 X 10*6/uL (4.40-5.60); RDW 14.4 % (11.5-14.5); WBC 5.24 X 10*3/uL (4.50-10.00)
[2022-10-06 11:19] LABS: Chol/HDL Ratio 3.23 Ratio; LDL Cholesterol,Calculated 66.9 mg/dL (0.0-131.0)
[2022-10-06 11:21] LABS: Hepatitis B Surface Antigen Nonreactive (Nonreactive)
[2022-10-06 11:27] LABS: Hepatitis B Surface Antibody Reactive (Nonreactive)
[2022-10-06 11:41] LABS: % Iron Saturation 18.89 (15.00-50.00); ALT 20 U/L (10-49); AST 22 U/L (14-35); African American GFR (CKD) 46.3 (60.0-200.0); Albumin 4.5 g/dL (3.8-4.9); Albumin/Globulin Ratio 2.37 (1.60-3.17); Alkaline Phosphatase 173 U/L (41-126); BUN/Creat Ratio 9.35 Ratio (12.00-20.00); Bilirubin, Conjugated <0.20 mg/dL (0.20-0.40); Blood Urea Nitrogen 15.9 mg/dL (9.0-27.0); Calcium 9.2 mg/dL (8.7-10.3); Carbon Dioxide 25.1 mmol/L (20.0-27.5); Chloride 104 mmol/L (96-109); Globulin 1.9 g/dL (1.6-3.3); Glucose 122 mg/dL (70-110); Iron 55 ug/dL (65-175); Magnesium 2.2 mg/dL (1.5-2.4); Sodium 140 mmol/L (135-145); Total Iron Binding Capacity 291 ug/dL (228-460); Total Protein 6.4 g/dL (6.2-8.2)
== END | disposition home or self-care (01) ==
LOC: LABWHC1 07:24
PROVIDERS: ATTEND Family Medicine
DX: D64.9 Anemia, unspecified (principal); Z94.4 Liver transplant status; Z98.890 Other specified postprocedural states; D84.9 Immunodeficiency, unspecified; C22.0 Liver cell carcinoma; N28.9 Disorder of kidney and ureter, unspecified; R74.8 Abnormal levels of other serum enzymes
CPT/HCPCS: 36415; 80053; 80061; 82105; 82248; 82728; 83540; 83550; 83735; 84439; 84443; 85025; 86706; 87340; 87517

== ENCOUNTER → 2022-10-13 | Outpatient (CLI) | payer MEDICARE | END | disposition home or self-care (01) | LOC: LABWHC1 07:22 | PROVIDERS: ATTEND Internal Medicine Transplant Hepatology | DX: E55.9 Vitamin D deficiency, unspecified (principal); Z94.4 Liver transplant status | CPT/HCPCS: 36415; 82306 ==

== ENCOUNTER → 2022-10-24 | Outpatient (CLI) | payer MEDICARE ==
[2022-10-24 15:17] LABS: Basophils # (A) 0.03 X 10*3/uL (0.00-0.10); Basophils % (A) 0.7 %; Eosinophils # (A) 0.11 X 10*3/uL (0.04-0.35); Eosinophils % (A) 2.5 %; HCT 38.7 % (39.6-50.0); HGB 12.1 g/dL (13.0-17.0); Immature Grans, Automated 0.2 %; Lymphocytes # (A) 1.24 X 10*3/uL (0.90-5.00); Lymphocytes % (A) 28.4 %; MCH 28.3 pg (27.0-32.0); MCHC 31.3 g/dL (32.0-37.0); MCV 90.4 fL (80.0-97.0); Mean Platelet Volume 10.8 fL (9.5-12.2); Monocytes # (A) 0.24 X 10*3/uL (0.20-1.00); Monocytes % (A) 5.5 %; NRBC Per 100 WBC 0 /100 WBCS (0.0-0.0); Neutrophils # (A) 2.74 X 10*3/uL (1.80-7.70); Neutrophils % (A) 62.7 %; Platelet Count 114 X 10*3/uL (140-440); RBC 4.28 X 10*6/uL (4.40-5.60); RDW 14.1 % (11.5-14.5); WBC 4.37 X 10*3/uL (4.50-10.00)
[2022-10-24 15:52] LABS: Chol/HDL Ratio 3.13 Ratio; LDL Cholesterol,Calculated 64.8 mg/dL (0.0-131.0)
[2022-10-24 15:59] LABS: % Iron Saturation 14.53 (15.00-50.00); ALT 25 U/L (10-49); AST 26 U/L (14-35); African American GFR (CKD) 49.8 (60.0-200.0); Albumin 4.1 g/dL (3.8-4.9); Albumin/Globulin Ratio 2.41 (1.60-3.17); Alkaline Phosphatase 172 U/L (41-126); BUN/Creat Ratio 10.44 Ratio (12.00-20.00); Bilirubin, Conjugated <0.20 mg/dL (0.20-0.40); Blood Urea Nitrogen 16.7 mg/dL (9.0-27.0); Calcium 8.8 mg/dL (8.7-10.3); Carbon Dioxide 24.1 mmol/L (20.0-27.5); Chloride 106 mmol/L (96-109); Globulin 1.7 g/dL (1.6-3.3); Glucose 158 mg/dL (70-110); Iron 36 ug/dL (65-175); Magnesium 2.3 mg/dL (1.5-2.4); Potassium 4.9 mmol/L (3.5-5.5); Sodium 141 mmol/L (135-145); Total Bilirubin <0.15 mg/dL (0.30-1.20); Total Iron Binding Capacity 248 ug/dL (228-460); Total Protein 5.8 g/dL (6.2-8.2)
[2022-10-24 16:05] LABS: Hepatitis B Surface AB- Quant 90.6 mIU/mL; Hepatitis B Surface Antibody Reactive (Nonreactive)
[2022-10-24 17:15] LABS: Hepatitis B Surface Antigen Nonreactive (Nonreactive)
[2022-10-25 13:52] LABS: Hepatitis B Virus DNA Not detected (Not detected); Hepatitis B Virus DNA, Quant <10 IU/mL (<10); Log HBV IU/mL <1.00 (<1.00)
== END | disposition home or self-care (01) ==
LOC: LABWHC1 07:41
PROVIDERS: ATTEND Family Medicine
DX: C22.0 Liver cell carcinoma (principal); Z94.4 Liver transplant status; R74.8 Abnormal levels of other serum enzymes; Z98.890 Other specified postprocedural states; D84.9 Immunodeficiency, unspecified; B19.10 Unspecified viral hepatitis B without hepatic coma; N28.9 Disorder of kidney and ureter, unspecified; D64.9 Anemia, unspecified
CPT/HCPCS: 80048; 80061; 80076; 82105; 82728; 83540; 83550; 83735; 85025; 86706; 87340; 87517

== ENCOUNTER → 2022-11-16 | Outpatient (CLI) | payer MEDICARE, OTHER ==
[2022-11-16 16:11] LABS: Chol/HDL Ratio 3.06 Ratio; Magnesium 2.2 mg/dL (1.5-2.4)
[2022-11-16 16:12] LABS: ALT 44 U/L (10-49); AST 57 U/L (14-35); Albumin 4.2 d/dL (3.8-4.9); Albumin/Globulin Ratio 2.33 Ratio (1.60-3.17); Alkaline Phosphatase 194 U/L (41-126); BUN/Creat Ratio 10.69 Ratio (12.00-20.00); Bilirubin, Conjugated <0.20 mg/dL (0.20-0.40); Bilirubin,Unconjugated >0.10 mg/dL (0.20-1.00); Blood Urea Nitrogen 17.1 mg/dL (9.0-27.0); Calcium 9.1 mg/dL (8.7-10.3); Carbon Dioxide 25.7 mmol/L (21.6-31.8); Chloride 104 mmol/L (96-109); Globulin 1.8 d/dL (1.6-3.3); Glucose 152 mg/dL (70-110); LDL Cholesterol,Calculated 64.5 mg/dL (0.0-131.0); Potassium 5.1 mmol/L (3.5-5.5); Sodium 139 mmol/L (135-145); Total Bilirubin 0.3 mg/dL (0.3-1.2)
[2022-11-16 16:30] LABS: Basophils # (A) 0.05 X 10*3/uL (0.00-0.10); Basophils % (A) 1.1 %; Eosinophils # (A) 0.14 X 10*3/uL (0.04-0.35); Eosinophils % (A) 3.2 %; HCT 38.6 % (39.6-50.0); HGB 11.8 d/dL (12.0-15.0); Lymphocytes # (A) 1.57 X 10*3/uL (0.90-5.00); Lymphocytes % (A) 35.6 %; MCHC 30.6 d/dL (32.0-37.0); MCV 91.7 FL (80.0-97.0); Mean Platelet Volume 11.8 FL (9.5-12.2); Monocytes # (A) 0.26 X 10*3/uL (0.20-1.00); Monocytes % (A) 5.9 %; NRBC Per 100 WBC 0 X 10*3/uL (0.00-0.01); Neutrophils # (A) 2.38 X 10*3/uL (1.80-7.70); Platelet Count 141 X 10*3/uL (140-440); RBC 4.21 X 10*6/uL (4.40-5.60); RDW 13.7 % (11.5-14.5); WBC 4.41 X 10*3/uL (4.50-10.00)
== END | disposition home or self-care (01) ==
LOC: LABWHC1 07:44
PROVIDERS: ATTEND Urology
DX: Z01.812 Encounter for preprocedural laboratory examination (principal)
CPT/HCPCS: 36415; 80048; 80061; 80076; 83735; 85025

== ENCOUNTER → 2022-11-22 | Outpatient (CLI) | payer MEDICARE, OTHER ==
[2022-11-23 12:51] LABS: Hepatitis B Virus DNA Not detected (Not detected); Hepatitis B Virus DNA, Quant <10 IU/mL (<10); Log HBV IU/mL <1.00 (<1.00)
== END | disposition home or self-care (01) ==
LOC: LABWHC1 07:51
PROVIDERS: ATTEND Internal Medicine Gastroenterology
DX: Z94.4 Liver transplant status (principal)
CPT/HCPCS: 36415; 87517

== ENCOUNTER → 2022-12-13 | Outpatient (CLI) | payer MEDICARE, OTHER ==
[2022-12-13 14:39] LABS: Basophils # (A) 0.04 X 10*3/uL (0.00-0.10); Basophils % (A) 0.7 %; Eosinophils # (A) 0.15 X 10*3/uL (0.04-0.35); Eosinophils % (A) 2.8 %; HCT 38.9 % (39.6-50.0); HGB 12.4 d/dL (12.0-15.0); Lymphocytes # (A) 1.22 X 10*3/uL (0.90-5.00); Lymphocytes % (A) 22.7 %; MCH 28.1 pg (27.0-32.0); MCHC 31.9 d/dL (32.0-37.0); MCV 88.2 FL (80.0-97.0); Mean Platelet Volume 11.3 FL (9.5-12.2); Monocytes # (A) 0.29 X 10*3/uL (0.20-1.00); Monocytes % (A) 5.4 %; NRBC Per 100 WBC 0 X 10*3/uL (0.00-0.01); Neutrophils # (A) 3.64 X 10*3/uL (1.80-7.70); Neutrophils % (A) 67.8 %; Platelet Count 123 X 10*3/uL (140-440); RBC 4.41 X 10*6/uL (4.40-5.60); RDW 13.9 % (11.5-14.5); WBC 5.37 X 10*3/uL (4.50-10.00)
[2022-12-13 14:47] LABS: Calcium 9.1 mg/dL (8.7-10.3); Chloride 106 mmol/L (96-109); Glucose 159 mg/dL (70-110); LDL Cholesterol,Calculated 91.2 mg/dL (0.0-131.0); Magnesium 2.1 mg/dL (1.5-2.4); Potassium 5.1 mmol/L (3.5-5.5); Sodium 140 mmol/L (135-145)
[2022-12-14 08:39] LABS: Hepatitis B Virus DNA Not detected (Not detected); Hepatitis B Virus DNA, Quant <10 IU/mL (<10); Log HBV IU/mL <1.00 (<1.00)
== END | disposition home or self-care (01) ==
LOC: LABWHC1 07:59
PROVIDERS: ATTEND Family Medicine
DX: R73.9 Hyperglycemia, unspecified (principal)
CPT/HCPCS: 36415; 80048; 80061; 83036; 83735; 85025; 87517

== ENCOUNTER → 2023-03-02 | Outpatient (CLI) | payer MEDICARE, OTHER ==
[2023-03-02 11:11] LABS: Basophils # (A) 0.03 X 10*3/uL (0.00-0.10); Basophils % (A) 0.6 %; Eosinophils % (A) 1.9 %; HCT 38.4 % (39.6-50.0); HGB 12.2 d/dL (13.0-17.0); Lymphocytes # (A) 1.58 X 10*3/uL (0.90-5.00); Lymphocytes % (A) 30.4 %; MCH 27.7 pg (27.0-32.0); MCHC 31.8 d/dL (32.0-37.0); MCV 87.3 FL (80.0-97.0); Mean Platelet Volume 10.4 FL (9.5-12.2); Monocytes # (A) 0.28 X 10*3/uL (0.20-1.00); Monocytes % (A) 5.4 %; NRBC Per 100 WBC 0 X 10*3/uL (0.00-0.01); Neutrophils % (A) 61.5 %; Platelet Count 131 X 10*3/uL (140-440); RDW 14.1 % (11.5-14.5)
[2023-03-02 14:14] LABS: Blood Urea Nitrogen 20.4 mg/dL (9.0-27.0); Chloride 105 mmol/L (96-109); GGT 21 U/L (0-73); Glucose 160 mg/dL (70-110); LDL Cholesterol,Calculated 90.6 mg/dL (0.0-131.0); Potassium 4.5 mmol/L (3.5-5.5); Sodium 139 mmol/L (135-145)
[2023-03-02 14:15] LABS: ALT 30 U/L (10-49); AST 24 U/L (14-35); Albumin 4.3 d/dL (3.8-4.9); Albumin/Globulin Ratio 2.15 Ratio (1.60-3.17); Alkaline Phosphatase 191 U/L (41-126); Bilirubin, Conjugated <0.20 mg/dL (0.20-0.40); Bilirubin,Unconjugated >0.10 mg/dL (0.20-1.00); Carbon Dioxide 22.8 mmol/L (21.6-31.8); Total Bilirubin 0.3 mg/dL (0.3-1.2); Total Protein 6.3 d/dL (6.2-8.2)
[2023-03-02 15:30] LABS: Hepatitis B Surface AB- Quant 96.8 mIU/mL
== END | disposition home or self-care (01) ==
LOC: LABWHC1 07:04
PROVIDERS: ATTEND Internal Medicine Gastroenterology
DX: Z94.4 Liver transplant status (principal)
CPT/HCPCS: 36415; 80048; 80061; 80076; 82977; 83735; 85025; 86706

== ENCOUNTER → 2023-04-17 | Outpatient (CLI) | payer MEDICARE, OTHER ==
[2023-04-17 18:11] LABS: Basophils # (A) 0.04 X 10*3/uL (0.00-0.10); Basophils % (A) 0.8 %; Eosinophils # (A) 0.08 X 10*3/uL (0.04-0.35); Eosinophils % (A) 1.6 %; HCT 40.1 % (39.6-50.0); HGB 12.7 g/dL (13.0-17.0); Lymphocytes # (A) 1.69 X 10*3/uL (0.90-5.00); Lymphocytes % (A) 34.6 %; MCH 28.7 pg (27.0-32.0); MCHC 31.7 g/dL (32.0-37.0); MCV 90.5 FL (80.0-97.0); Mean Platelet Volume 10.7 FL (9.5-12.2); Monocytes # (A) 0.23 X 10*3/uL (0.20-1.00); Monocytes % (A) 4.7 %; NRBC Per 100 WBC 0 X 10*3/uL (0.00-0.01); Neutrophils # (A) 2.83 X 10*3/uL (1.80-7.70); Neutrophils % (A) 58.1 %; Platelet Count 122 X 10*3/uL (140-440); RBC 4.43 X 10*6/uL (4.40-5.60); WBC 4.88 X 10*3/uL (4.50-10.00)
[2023-04-17 18:31] LABS: ALT 33 U/L (10-49); AST 25 U/L (14-35); Albumin 4.3 g/dL (3.8-4.9); Albumin/Globulin Ratio 2.26 Ratio (1.60-3.17); Alkaline Phosphatase 190 U/L (41-126); BUN/Creat Ratio 10.22 Ratio (12.00-20.00); Bilirubin, Conjugated <0.20 mg/dL (0.20-0.40); Blood Urea Nitrogen 18.4 mg/dL (9.0-27.0); Calcium 9.4 mg/dL (8.7-10.3); Carbon Dioxide 25.3 mmol/L (21.6-31.8); Chloride 109 mmol/L (96-109); Chol/HDL Ratio 3.86 Ratio; Globulin 1.9 g/dL (1.6-3.3); Glucose 131 mg/dL (70-110); LDL Cholesterol,Calculated 95.2 mg/dL (0.0-131.0); Magnesium 2.1 mg/dL (1.5-2.4); Potassium 5.3 mmol/L (3.5-5.5); Sodium 143 mmol/L (135-145); Total Bilirubin <0.2 mg/dL (0.3-1.2); Total Protein 6.2 g/dL (6.2-8.2)
--- NOTE | 2023-04-17 22:17 | MR ---
EXAMINATION TYPE: MR abdomen wo con DATE OF EXAM: 04/17/2023 8:17 AM CLINICAL INDICATION:Male, 73 years old with history of post liver transplant/included MRCP scans; PHH , Post Liver transplant, elevated labs COMPARISON: CT scan abdomen from 09/15/2020 . TECHNIQUE: Multiplanar multi-sequence imaging was performed without contrast. Multi planar, T2-weighted imaging with and without fat saturation and chemical shift imaging was perf ormed of the abdomen. Then, heavily T2 weighted imaging (half-Fourier acquisition single-shot turbo s pin-echo) was utilized in order to study the biliary system. Maximum intensity projection images wer e reconstructed from the original data of the biliary tree. 3D images were created on a separate work station. IV Contrast: None FINDINGS: LOWER CHEST: No gross irregularity. Gynecomastia changes bilaterally. The heart is mildly enlarged fo r size. ABDOMEN Liver: Post liver transplant. No suspicious observations. Gallbladder and Bile ducts: Dilation of the common bile duct up to 11 mm andr common hepatic duct up to 12 mm. There is possible stricture on series 301 image 18. There is central intrahepatic biliary d ilation. There is a cystic duct remnant noted. Filling defect measuring 3 mm within the distal common bile duct, series 701 image 20. The gallbladder surgically absent. Pancreas: No ductal dilation. No evidence for solid mass. Spleen: Normal for size. Adrenal glands: Unremarkable. Kidneys: No evidence for obstructive uropathy. No suspicious renal masses. Stomach and Bowel: No evidence for bowel wall thickening or evidence for obstruction.. Peritoneum: No evidence of pneumoperitoneum or free fluid. Vasculature: No aortic aneurysm. Musculoskeletal: The osseous structures appear intact. Lymph Nodes: No gross evidence for lymphadenopathy. Abdominal wall: Postsurgical changes anterior abdominal wall compatible with surgery. IMPRESSION: There is thought to be a stricture at the anastomotic site of the extrahepatic persistent. Additional ly there may be a stone within the bile duct. There is mild central intrahepatic and extra hepatic bi liary dilation.
[2023-04-18 13:26] LABS: Hepatitis B Virus DNA Not detected (Not detected); Hepatitis B Virus DNA, Quant <10 IU/mL (<10); Log HBV IU/mL <1.00 (<1.00)
== END | disposition home or self-care (01) ==
LOC: RADMRIMAIN 07:19
PROVIDERS: ATTEND Internal Medicine Gastroenterology
DX: Z94.4 Liver transplant status (principal); R79.9 Abnormal finding of blood chemistry, unspecified; Z90.49 Acquired absence of other specified parts of digestive tract
CPT/HCPCS: 74181; 80048; 80061; 80076; 83735; 85025; 87517

== ENCOUNTER → 2023-11-21 | Outpatient (CLI) | payer MEDICARE, OTHER ==
--- NOTE | 2023-11-21 09:33 | MR ---
EXAMINATION TYPE: MR abdomen wo con DATE OF EXAM: 11/21/2023 9:17 AM CLINICAL INDICATION:Male, 73 years old with history of K83.1 OBSTRUCTION OF BILE DUCT; PHH, Abdominal pain, obstruction of bile duct, hx liver transplant. COMPARISON: MRI 04/17/2023. TECHNIQUE: Multiplanar multi-sequence imaging was performed without contrast. IV Contrast: cc FINDINGS: LOWER CHEST: No gross irregularity. Gynecomastia changes bilaterally. The heart is mildly enlarged fo r size. ABDOMEN Liver: Post liver transplant. No suspicious observations. No evidence for steatosis or cirrhosis. Gallbladder and Bile ducts: Dilation of the common bile duct up to 7 mm previously 11 mm. The common hepatic duct is dilated up to 10 mm previously 12. There is possible stricture on series 301 image 18 has a similar morphology to prior. There is mild slightly reduce central intrahepatic biliary dilati on. There is a cystic duct remnant noted. Previous filling defect measuring 3 mm is no longer visualized and the distal common bile duct. No fi lling defects are visualized.. The gallbladder surgically absent. Pancreas: No ductal dilation. No evidence for solid mass. Mildly atrophic pancreatic parenchyma. Spleen: Normal for size measuring up to 13.0 cm. Adrenal glands: Unremarkable. Kidneys: No evidence for obstructive uropathy. No suspicious renal masses. Stomach and Bowel: No evidence for bowel wall thickening or evidence for obstruction.. Peritoneum: No evidence of pneumoperitoneum or free fluid. Vasculature: No aortic aneurysm. Musculoskeletal: The osseous structures appear intact. Lymph Nodes: No gross evidence for lymphadenopathy. Abdominal wall: Postsurgical changes anterior abdominal wall compatible with surgery. IMPRESSION: Similar appearance of the likely stricture at the anastomotic site of the extrahepatic biliary system . Previous diagnosis no longer visualized. There is mildly reduced central intrahepatic and extra hep atic biliary dilation compared to prior.
== END | disposition home or self-care (01) ==
LOC: RADMRIMAIN 08:23
PROVIDERS: ATTEND Family Medicine
DX: K83.1 Obstruction of bile duct (principal); R10.9 Unspecified abdominal pain; Z94.4 Liver transplant status
CPT/HCPCS: 74181

== ENCOUNTER → 2024-01-25 | Outpatient (CLI) | payer MEDICARE, OTHER ==
[2024-01-25 15:49] LABS: Chol/HDL Ratio 5.65 Ratio; Magnesium 1.9 mg/dL (1.5-2.4)
[2024-01-25 16:14] LABS: ALT 27 U/L (10-49); AST 28 U/L (14-35); Albumin 4.2 g/dL (3.8-4.9); Albumin/Globulin Ratio 2.33 Ratio (1.60-3.17); Alkaline Phosphatase 177 U/L (41-126); BUN/Creat Ratio 10.07 Ratio (12.00-20.00); Bilirubin, Conjugated <0.20 mg/dL (0.20-0.40); Bilirubin,Unconjugated >0.10 mg/dL (0.20-1.00); Blood Urea Nitrogen 15.1 mg/dL (9.0-27.0); Calcium 8.6 mg/dL (8.7-10.3); Carbon Dioxide 22.8 mmol/L (21.6-31.8); Chloride 106 mmol/L (96-109); Globulin 1.8 g/dL (1.6-3.3); Glucose 112 mg/dL (70-110); Potassium 4.1 mmol/L (3.5-5.5); Sodium 140 mmol/L (135-145); Total Bilirubin 0.3 mg/dL (0.3-1.2)
[2024-01-25 16:18] LABS: Basophils # (A) 0.05 X 10*3/uL (0.00-0.10); Basophils % (A) 0.7 %; Eosinophils # (A) 0.13 X 10*3/uL (0.04-0.35); Eosinophils % (A) 1.7 %; HCT 36.1 % (39.6-50.0); HGB 11.6 g/dL (13.0-17.0); Lymphocytes # (A) 1.91 X 10*3/uL (0.90-5.00); Lymphocytes % (A) 24.9 %; MCH 28.4 pg (27.0-32.0); MCHC 32.1 g/dL (32.0-37.0); MCV 88.3 FL (80.0-97.0); Mean Platelet Volume 10.8 FL (9.5-12.2); Monocytes # (A) 0.52 X 10*3/uL (0.20-1.00); Monocytes % (A) 6.8 %; NRBC Per 100 WBC 0 X 10*3/uL (0.00-0.01); Neutrophils # (A) 5.03 X 10*3/uL (1.80-7.70); Neutrophils % (A) 65.6 %; Platelet Count 151 X 10*3/uL (140-440); RBC 4.09 X 10*6/uL (4.40-5.60); RDW 13.8 % (11.5-14.5); WBC 7.66 X 10*3/uL (4.50-10.00)
[2024-01-29 10:15] LABS: Hepatitis B Virus DNA Not detected (Not detected); Hepatitis B Virus DNA, Quant <10 IU/mL (<10); Log HBV IU/mL <1.00 (<1.00)
== END | disposition home or self-care (01) ==
LOC: LABWHC1 07:57
PROVIDERS: ATTEND Internal Medicine Gastroenterology
DX: Z94.4 Liver transplant status (principal)
CPT/HCPCS: 36415; 80048; 80061; 80076; 80169; 83721; 83735; 85025; 87517

== ENCOUNTER → 2024-07-29 | Outpatient (CLI) | payer MEDICARE, OTHER ==
--- NOTE | 2024-07-29 11:15 | CT ---
EXAMINATION TYPE: CT abdomen pelvis wo con CT DLP: 827 mGycm, Automated exposure control for dose reduction was used. DATE OF EXAM: 07/29/2024 10:55 AM COMPARISON: CT abdomen pelvis 09/15/2020, MR abdomen 11/21/2023, 04/17/2023 CLINICAL INDICATION:Male, 74 years old with history of R10.33 periumbilical pain; umbilical pain TECHNIQUE: Standard CT of the abdomen and pelvis without IV or oral contrast. Lack of IV or oral co ntrast limits evaluation of solid and hollow organ viscera. Coronal and sagittal reformats were perfo rmed. FINDINGS: LOWER CHEST: Minimal right lower lobe subsegmental atelectasis. Small visualized coronary artery calc ifications. ABDOMEN LIVER: Postsurgical changes from liver transplant. No focal lesion within the limitations of a noncon trast exam. GALLBLADDER AND BILE DUCTS: Pneumobilia demonstrated. No biliary ductal dilatation. Gallbladder is mcelroy rgically absent. PANCREAS: Mildly atrophic. SPLEEN: Unremarkable noncontrast appearance ADRENAL GLANDS: Unremarkable noncontrast appearance. KIDNEYS AND URETERS: No evidence of hydronephrosis or renal calculus. Bilateral perinephric fat stran ding. No ureteral calculus. PELVIS BLADDER: Underdistended but grossly unremarkable. REPRODUCTIVE: Coarse calcifications of the prostate gland are identified. ABDOMEN & PELVIS STOMACH AND BOWEL: Stomach and duodenum are unremarkable. No focal bowel wall thickening or surroundi ng inflammatory changes. No evidence of bowel obstruction. PERITONEUM: No evidence of pneumoperitoneum or free fluid. VASCULATURE: Moderate atherosclerotic calcifications are present throughout the abdominal aorta and i ts branches. No evidence of aortic aneurysm. MUSCULOSKELETAL: No acute osseous abnormalities. Mild disc degeneration changes are present throughou t the thoracolumbar spine. LYMPH NODES: No gross evidence for lymphadenopathy. SOFT TISSUE/ABDOMINAL WALL: Postsurgical changes of the midline anterior abdomen wall. No evidence fo r hernia. No organized fluid collection. IMPRESSION: 1. No acute abdominopelvic process within the limitations of a noncontrast exam. 2. Postsurgical changes from liver transplant and cholecystectomy with pneumobilia. [facility], , 07/29/2024 11:12 AM
== END | disposition home or self-care (01) ==
LOC: RADCTMAIN 10:00
PROVIDERS: ATTEND Family Medicine
DX: R10.33 Periumbilical pain (principal); Z94.4 Liver transplant status; Z90.49 Acquired absence of other specified parts of digestive tract
CPT/HCPCS: 74176

== ENCOUNTER → 2024-08-28 | Outpatient (CLI) | payer MEDICARE, OTHER ==
--- NOTE | 2024-08-28 12:33 | XR ---
EXAMINATION TYPE: XR cervical spine comp DATE OF EXAM: 08/28/2024 11:44 AM COMPARISON: None CLINICAL INDICATION: Male, 74 years old with history of M50.30 OTHER CERVICAL DISC DEGENERATION, UNSP CERV; PHH, pain TECHNIQUE: The cervical spine was imaged in frontal, lateral, odontoid and bilateral oblique. FINDINGS: The osseous structures show normal alignment without evidence of an acute fracture. There are osteoph ytes noted throughout the cervical spine on the anterior and lateral aspects of the vertebral bodies. The intervertebral disk spaces are narrowed at multiple levels. Pedicles are intact. Soft tissues a re within normal limits. The odontoid appears intact. IMPRESSION: 1. No fracture or dislocation. 2. Mild to moderate degenerative disc disease changes of the cervical spine. [facility], , 08/28/2024 12:31 PM
== END | disposition home or self-care (01) ==
LOC: RADXRMAIN 11:18
PROVIDERS: ATTEND Family Medicine
DX: M50.30 Other cervical disc degeneration, unspecified cervical region (principal)
CPT/HCPCS: 72050